=== PATIENT | female | born 1970 | race Caucasian/White ===

== ENCOUNTER 2017-06-27 18:37 | Emergency (ER) | payer BC ==
[2017-06-27 19:22] VITALS: BP 126/83
[2017-06-27] MEDS ORDERED: Albuterol 2.5 MG/3 ML NEB.SOL* (0.083%) INH ONE (19:39)
--- NOTE | 2017-06-27 19:51 | UC ---
UC General HPI - HPI Summary HPI Summary: became ill about 2 weeks ago with a sore throat, cough and chest congestion. started improving but now has a worsening cough, congestion and "lungs feel tight" admits to some wheezing as well. chest sore with cough. no fever, chills , or lung disease. - History of Current Complaint Chief Complaint: UCGeneralIllness Stated Complaint: COUGH/CONESTION Time Seen by Provider: 06/27/17 19:29 Hx Obtained From: Patient Hx Last Menstrual Period: 06/07/17 Onset/Duration: Gradual Onset Timing: Constant Pain Intensity: 3 Associated Signs & Symptoms: Positive: Cough, SOB, Wheezing. Negative: Chest Pain, Fever - Allergy/Home Medications Allergies/Adverse Reactions: Allergies Allergy/AdvReac Type Severity Reaction Status Date / Time MS Sulfa Drugs [Sulfa Drugs] Allergy Severe Swelling Verified 12/23/15 16:51 Of Face,Lips,& Throat MS Ampicillin [Ampicillin] Allergy Intermediate Hives Verified 12/23/15 16:51 MS Erythromycin AdvReac Severe Heartburn Verified 12/23/15 16:51 [Erythromycin] Home Medications: Home Medications Fexofenadine/Pseudoephedrine [Eva-D 24 Hour Tablet] 1 each PO DAILY PRN [History Confirmed 06/27/17] Triamcinolone NASAL SPRAY* [Nasacort Aq Nasal [place]*] 2 puff NASAL DAILY PRN [History Confirmed 06/27/17] PMH/Surg Hx/FS Hx/Imm Hx - Additional Past Medical History Additional PMH: allergies - Surgical History Surgical History: Yes Surgery Procedure, Year, and Place: UTERINE POLYP REMOVED - Family History Known Family History: Positive: None Family History: no known cardio-vascular issues in family lineage - Social History Occupation: Employed Full-time Alcohol Use: Rare Substance Use Type: None Smoking Status (MU): Former Smoker When Did the Patient Quit Smoking/Using Tobacco: 2001 Review of Systems Constitutional: Negative Skin: Negative Eyes: Negative ENT: Negative Respiratory: Shortness Of Breath, Cough Cardiovascular: Negative Gastrointestinal: Negative Genitourinary: Negative Motor: Negative Neurovascular: Negative Musculoskeletal: Negative Neurological: Negative Psychological: Negative Is Patient Immunocompromised?: No All Other Systems Reviewed And Are Negative: Yes Physical Exam Triage Information Reviewed: Yes Appearance: Well-Appearing Vital Signs: Initial Vital Signs Temp 98.9 F 06/27/17 19:14 Pulse 98 06/27/17 19:14 Resp 24 06/27/17 19:14 BP 126/83 06/27/17 19:14 Pulse Ox 100 06/27/17 19:14 Eye Exam: Normal ENT: Positive: Normal ENT inspection Neck: Positive: Supple, Nontender, No Lymphadenopathy Respiratory: Positive: Lungs clear, No respiratory distress, Decreased breath sounds Cardiovascular: Positive: RRR, No Murmur Abdomen Description: Positive: Nontender, No Organomegaly, Soft Bowel Sounds: Positive: Present Musculoskeletal: Positive: ROM Intact Neurological: Positive: Alert Psychological: Positive: Age Appropriate Behavior Skin Exam: Normal Re-Evaluation - Re-Evaluation Second Eval Change: Improved - PT NOTES LUNG TIGHTNESS RESOLVED, EASIER TO BREATHE AND AERATION IS MUCH IMPROVED. Course/Dx - Course Course Of Treatment: No concern for PE, cardiac pahtology. c/w bronchitis - Differential Dx - Multi-Symptom Provider Diagnoses: bronchitis with bronchospasm Discharge - Discharge Plan Condition: Improved Disposition: HOME Prescriptions: Albuterol HFA INHALER* [Ventolin HFA Inhaler*] 2 puff INH Q6H #1 mdi Patient Education Materials: Acute Bronchitis (ED), Bronchospasm (ED) Referrals: Anusha Herzog PA [Primary Care Provider] - 7 Days
== END 2017-06-27 20:26 | disposition home or self-care (01) ==
LOC: UCCORT 18:37
DX: J40 Bronchitis, not specified as acute or chronic (principal); Z88.1 Allergy status to other antibiotic agents; Z88.0 Allergy status to penicillin; Z88.8 Allergy status to other drugs, medicaments and biological substances; Z87.891 Personal history of nicotine dependence
CPT/HCPCS: 99212; G0463

== ENCOUNTER 2019-06-18 13:21 | Emergency (ER) | payer BC ==
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
[2019-06-18 14:52] VITALS: BP 129/81
--- NOTE | 2019-06-18 15:00 | UC ---
FLU HPI - HPI Summary HPI Summary: 49-year-old female with flulike symptoms of the past 2 days with fever, chills, head congestion, nasal congestion and nonproductive cough. She is a nonsmoker. She did get a flu shot in the fall. - History of Current Complaint Chief Complaint: UCRespiratory Stated Complaint: COUGH CONGESTION Time Seen by Provider: 06/18/19 14:46 Hx Obtained From: Patient Hx Last Menstrual Period: 2 mos. ?: No Onset/Duration: Sudden Onset Severity Currently: Mild Severity Initially: Moderate Pain Intensity: 4 Associated Signs & Symptoms: Positive: Fever, Myalgia, Cough, Nasal Congestion, Headache Related Hx: Possible Flu/Infectious Exposure - Allergy/Home Medications Allergies/Adverse Reactions: Allergies Allergy/AdvReac Type Severity Reaction Status Date / Time ampicillin Allergy Hives Verified 06/18/19 14:53 erythromycin base Allergy Heartburn Verified 06/18/19 14:53 Sulfa (Sulfonamide Allergy Swelling Verified 06/18/19 14:53 Antibiotics) Of Face,Lips,& Throat Home Medications: Home Medications Citalopram TAB* [Celexa TAB*] 20 mg PO BEDTIME 05/22/12 [History Confirmed 06/17] Ibuprofen TAB* [Advil TAB*] 800 mg PO Q6H PRN 12/23/15 [History Confirmed ] Fexofenadine/Pseudoephedrine [Eva-D 24 Hour Tablet] 1 each PO DAILY PRN [History Confirmed 06/18/19] Oseltamivir CAP* [Tamiflu CAP*] 75 mg PO BID 5 Days #10 cap 06/18/19 [Rx] PMH/Surg Hx/FS Hx/Imm Hx Previously Healthy: Yes Psychological History: Anxiety - Surgical History Surgical History: Yes Surgery Procedure, Year, and Place: UTERINE POLYP REMOVED - Family History Known Family History: Positive: None Family History: no known cardio-vascular issues in family lineage - Social History Occupation: Employed Full-time Lives: With Family Alcohol Use: Rare Substance Use Type: None Smoking Status (MU): Former Smoker When Did the Patient Quit Smoking/Using Tobacco: 2001 Review of Systems All Other Systems Reviewed And Are Negative: Yes Constitutional: Positive: Fever, Chills ENT: Positive: Nasal Discharge, Sinus Congestion Respiratory: Positive: Cough Musculoskeletal: Positive: Myalgia Neurological/Mental Status: Positive: Headache Is Patient Immunocompromised?: No Physical Exam Triage Information Reviewed: Yes Appearance: Well-Appearing, No Pain Distress, Well-Nourished Vital Signs: Initial Vital Signs Temp 98.8 F 06/18/19 14:46 Pulse 115 06/18/19 14:46 Resp 18 06/18/19 14:46 BP 129/81 06/18/19 14:46 Pulse Ox 100 06/18/19 14:46 Vital Signs Reviewed: Yes Eyes: Positive: Conjunctiva Clear ENT: Positive: Pharynx normal, Nasal congestion, Nasal drainage - Clear nasal coryza, TMs normal, Uvula midline Neck: Positive: Supple, Nontender, No Lymphadenopathy Respiratory: Positive: Lungs clear, Normal breath sounds, No respiratory distress, No accessory muscle use Cardiovascular: Positive: No Murmur, Pulses Normal, Brisk Capillary Refill, Tachycardia Musculoskeletal Exam: Normal Neurological Exam: Normal Psychological Exam: Normal Skin Exam: Normal Flu Course/Dx - Course Course Of Treatment: Rapid flu test: Positive The patient opted to be treated with Tamiflu. She is in no distress and nontoxic. - Differential Dx/Diagnosis Provider Diagnosis: Influenza Discharge ED - Sign-Out/Discharge Documenting (check all that apply): Patient Departure All imaging exams completed and their final reports reviewed: No Studies - Discharge Plan Condition: Fair Disposition: HOME Prescriptions: Oseltamivir CAP* [Tamiflu CAP*] 75 mg PO BID 5 Days #10 cap Patient Education Materials: Influenza (DC) Forms: *Work Release Referrals: Anusha Herzog PA [Primary Care Provider] - Additional Instructions: Rest, increase fluids, follow-up with your primary care provider if no improvement in 3 or 4 days or if any worsening symptoms. - Billing Disposition and Condition Condition: FAIR Disposition: Home
[2019-06-18 15:08] LABS: Influenza A Molecular POSITIVE (Negative)
== END 2019-06-18 15:43 | disposition home or self-care (01) ==
LOC: UCCORT 13:21
DX: J11.1 Influenza due to unidentified influenza virus with other respiratory manifestations (principal); F41.9 Anxiety disorder, unspecified; Z79.899 Other long term (current) drug therapy; Z87.891 Personal history of nicotine dependence; Z88.0 Allergy status to penicillin; Z88.1 Allergy status to other antibiotic agents; Z88.2 Allergy status to sulfonamides
CPT/HCPCS: 99212; G0463